=== PATIENT | female | born 1950 | race Caucasian/White ===

== ENCOUNTER → 2016-04-21 | Outpatient (CLI) | payer BC ==
[2016-04-21 16:47] VITALS: BMI 39.9
[2016-04-21 16:51] VITALS: BP 150/86; PULSE 65; RESP 16; TEMP 98.8
[2016-04-21 17:19] LABS: CH 28.1; CHCM 31.6; HCT 46.6 % (34.0-46.0); HDW 2.21; HGB 14.7 gm/dL (11.4-16.0); MCH 28.1 pg (25.0-35.0); MCHC 31.5 g/dL (31.0-37.0); MCV 89.2 fL (80.0-100.0); Mean Platelet Volume 6.8; RBC 5.22 m/uL (3.80-5.40); RDW 13.5 % (11.5-15.5); WBC 6.9 k/uL (3.8-10.6)
[2016-04-21 17:30] LABS: ALT 32 U/L (9-52); AST 25 U/L (14-36); Alkaline Phosphatase 85 U/L (38-126); Anion Gap 11 mmol/L; Blood Urea Nitrogen 16 mg/dL (7-17); Calcium 9.9 mg/dL (8.4-10.2); Carbon Dioxide 27 mmol/L (22-30); Chloride 102 mmol/L (98-107); Cholesterol 213 mg/dL (<200); Glucose 98 mg/dL (74-99); HDL Cholesterol 61 mg/dL (40-60); Iron 44 ug/dL (37-170); Magnesium 2.1 mg/dL (1.6-2.3); Non-African American GFR(MDRD) >60 (>60 ml/min/1.73 sqM); Phosphorous 3.5 mg/dL (2.5-4.5); Potassium 4.6 mmol/L (3.5-5.1); Sodium 140 mmol/L (137-145); Total Bilirubin 0.4 mg/dL (0.2-1.3); Total Protein 6.8 g/dL (6.3-8.2); Triglycerides 119 mg/dL (<150)
[2016-04-21 17:39] LABS: % Iron Saturation 15.4 % (20-50); Prealbumin 22 mg/dL (18-36); Total Iron Binding Capacity 286 ug/dL (265-497)
[2016-04-21 17:46] LABS: INR 1.1 (<1.1); Partial Thromboplastin Time 25.2 sec (22.0-30.0); Prothrombin Time 10.6 sec (9.0-12.0)
[2016-04-21 18:37] LABS: Vitamin B12 782 pg/mL (239-931)
[2016-04-21 18:41] LABS: Hemoglobin A1C 5.6 % (4.2-6.1)
[2016-04-23 18:21] LABS: Selenium 149 mcg/L (63-160)
--- NOTE | 2016-05-27 04:15 | P.PN ---
Progress Note - Text DATE OF SERVICE: 04/21/2016 CHIEF COMPLAINT: Followup sleeve gastrectomy. HISTORY OF PRESENT ILLNESS: Jaqueline Hoffmann is a 65-year-old female who is status post sleeve gastrectomy April 14, 2015. She is one year out. At her height of 5 feet 5 inches, her ideal body weight is 149 pounds. Highest weight is 321 pounds. Today she comes in weighing 239 pounds. She has lost 82 pounds in one year. Percent excess weight loss is 48%. Body mass index is reduced from 53.5 down to 39.9. Total BMI point index is 13.6. She is still 90 pounds overweight. Her goal is to at least achieve another 40 to 50 pound weight loss. She feels great. She is off all medications related to blood pressure and diabetes and she is only on thyroid medications. PAST MEDICAL HISTORY: 1. Diabetes, type 2, well controlled. 2. Obstructive sleep apnea. 3. Hypothyroidism. 4. Gout. 5. Osteoarthritis of bilateral knees with subsequent replacement. 6. Morbid obesity with body mass index of 53.5, initial. PAST SURGICAL HISTORY: 1. Appendectomy. 2. Hysterectomy. 3. Joint replacement. 4. Bilateral knee replacement. 5. Upper endoscopy. 6. Colonoscopy with polypectomy. 7. Sleeve gastrectomy. MEDICATIONS: 1. Multivitamin. 2. Cytomel. 3. Calcium. 4. Vitamin C. 5. Xanax. ALLERGIES: DENIES. SOCIAL HISTORY: No active alcohol, tobacco or illicit drug use. FAMILY HISTORY: Pertinent for morbid obesity and diabetes, type 2, with her mother dying from complications from diabetes. Denies any stomach or esophageal cancer. REVIEW OF SYSTEMS: CONSTITUTIONAL: Total weight loss of 82 pounds. Body mass index reduced from 53.5 down to 39.9. 40% excess weight loss. ENDOCRINE: Resolved diabetes type 2, [id number]. Currently taking medications for her thyroid. CARDIOVASCULAR: She is not on any hypertensive medications. No medications of dyslipidemia. MUSCULOSKELETAL: Moderate reduction of lower back, including bilateral joint knee pain. RESPIRATORY: Resolved obstructive sleep apnea. GASTROINTESTINAL: No reports of blood in stools. Denies any gastroesophageal reflux disease. HEENT: Denies any troubles with hearing. CARDIOVASCULAR: No reports of recent chest pain or heart attack. NEURO: No reports of stroke or seizure disorder. PSYCH: No reports of depression or suicidal ideation. HEMATOLOGIC: Denies any easy bruising or bleeding. PHYSICAL EXAM: VITAL SIGNS: 98.8, 65, 16, 150/86; 5 foot 5, 239 pounds. Body mass index 39.9. ABDOMEN: Soft, nontender. Mild hyperemia with panniculitis. No large palpable incisional hernias. GENERAL: Well-developed female no acute distress. MUSCULOSKELETAL: No clubbing, cyanosis, or edema. HEENT: No sclerae icterus. Extraocular movements grossly intact. Moist buccal mucosa. NECK: Supple without lymphadenopathy. CHEST: Non-labored respirations with equal bilateral excursions. CARDIOVASCULAR: Regular rate and rhythm. NEURO: No focal or lateralizing signs. PSYCH: Appropriate affect. Alert and oriented to person, place and time. LABS: Basic metabolic panel was reviewed. Hematocrit was elevated at 46.6. Cholesterol was elevated at 213. LDL elevated at 120. HDL elevated at 61. Thyroid-stimulating hormone elevated at 7. Zinc low at 53. ASSESSMENT: 1. Morbid obesity due to excess calories. 2. Body mass index reduced from 53.5 down to 39.9. 3. Chronic obstructive pulmonary disease with obstructive sleep apnea. 4. Hypothyroidism. 5. 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 6. Osteoarthritis of bilateral knees due to morbid obesity. 7. Diabetes, type 2, well controlled. 8. Status post sleeve gastrectomy. 9. Dietary surveillance and counseling. 10. Secondary hyperparathyroidism. 11. Panniculitis of the abdomen. 12. Hypercholesterolemia. 13. Zinc deficiency. PLAN: 1. In view of her labs with thyroid stimulating hormone elevated, recommend increase her thyroid supplement. 2. Recommend zinc supplement at least 50 mg daily. 3. Although she has completed her one year sleeve gastrectomy, recommend strict medical supervised weight loss to help her achieve extra 50 pounds weight loss. 4. Recommend at least follow up in 2 to 3 months as well. 5. Nystatin powder is written on her behalf for panniculitis.
== END | disposition home or self-care (01) ==
LOC: BARWHC3 15:11
PROVIDERS: ATTEND Surgery Plastic and Reconstructive Surgery
DX: Z48.815 Encounter for surgical aftercare following surgery on the digestive system (principal); E66.01 Morbid (severe) obesity due to excess calories; Z68.39 Body mass index [BMI] 39.0-39.9, adult; J44.9 Chronic obstructive pulmonary disease, unspecified; M17.0 Bilateral primary osteoarthritis of knee; Z96.653 Presence of artificial knee joint, bilateral; Z98.84 Bariatric surgery status; Z71.3 Dietary counseling and surveillance; M79.3 Panniculitis, unspecified; E78.00 Pure hypercholesterolemia, unspecified; E60 Dietary zinc deficiency; E21.1 Secondary hyperparathyroidism, not elsewhere classified; E89.1 Postprocedural hypoinsulinemia; D50.8 Other iron deficiency anemias; E44.0 Moderate protein-calorie malnutrition; E55.9 Vitamin D deficiency, unspecified; K74.1 Hepatic sclerosis; T56.894A Toxic effect of other metals, undetermined, initial encounter; K50.90 Crohn's disease, unspecified, without complications; Z79.899 Other long term (current) drug therapy
CPT/HCPCS: 80053; 80061; 82306; 82525; 82607; 82728; 82746; 83036; 83540; 83550; 83735; 83970; 84100; 84134; 84255; 84443; 84590; 84630; 85027; 85610; 85730; 99211

== ENCOUNTER → 2017-04-20 | Outpatient (CLI) | payer BC ==
[2017-04-20 16:04] VITALS: BP 140/78; PULSE 85; RESP 15; TEMP 97.6; BMI 39.7
[2017-04-20 17:28] LABS: Partial Thromboplastin Time 24.1 sec (22.0-30.0); Prothrombin Time 10.1 sec (9.0-12.0)
[2017-04-20 17:31] LABS: HCT 45.3 % (34.0-46.0); HGB 14.7 gm/dL (11.4-16.0); MCH 28.7 pg (25.0-35.0); MCHC 32.4 g/dL (31.0-37.0); MCV 88.6 fL (80.0-100.0); Mean Platelet Volume 6.8; Platelet Count 286 k/uL (150-450); RBC 5.11 m/uL (3.80-5.40); RDW 13.2 % (11.5-15.5); WBC 6.8 k/uL (3.8-10.6)
[2017-04-20 17:33] LABS: Albumin 4.3 g/dL (3.5-5.0); Calcium 10.1 mg/dL (8.4-10.2); Magnesium 2.1 mg/dL (1.6-2.3); Phosphorus 3.5 mg/dL (2.5-4.5); Potassium 4.7 mmol/L (3.5-5.1); Total Bilirubin 0.5 mg/dL (0.2-1.3); Total Protein 6.6 g/dL (6.3-8.2)
[2017-04-21 01:42] LABS: Iron Saturation 14.95 (12.00-45.00)
[2017-04-21 01:54] LABS: Vitamin D 25 Hydroxy 51.4 ng/mL (30.0-100.0)
[2017-04-21 01:58] LABS: Hemoglobin A1C 5.4 % (4.0-6.0)
[2017-04-21 02:15] LABS: Folate, Serum >24.0 ng/mL
[2017-04-21 02:29] LABS: Parathyroid Hormone Intact 66.7 pg/mL (14.0-72.0)
[2017-04-21 16:21] LABS: Zinc, Serum 69 ug/dL (60-130)
[2017-04-22 00:54] LABS: Vitamin B1 46 ug/L (38-122)
[2017-04-22 08:42] LABS: Vitamin A 54 ug/dL (38-106)
[2017-04-23 23:22] LABS: Selenium 135 mcg/L (63-160)
--- NOTE | 2017-06-03 08:31 | P.PN ---
Subjective Progress Note Date: 04/20/17 DATE OF SERVICE: 04/20/2017 CHIEF COMPLAINT: Followup sleeve gastrectomy HISTORY OF PRESENT ILLNESS: Jaqueline Hoffmann is a 66-year-old female who is status post sleeve gastrectomy April 14, 2015. She is 2 years out. At her height of 5 feet 5 inches, her ideal body weight is 149 pounds. Highest weight is 321 pounds. Today she comes in weighing 239 pounds. Her weight has been unchanged in 1 year. She has maintained 82 pounds weight loss. Percent excess weight loss is 48%. Body mass index is reduced from 53.5 down to 39.8. She denies any gastroesophageal reflux disease. She reports improvement of her joint pain and upper lower back. No reports of abdominal pain. She is doing well. She is looking to lose at least another 20 pounds. She reports chronic panniculitis for more than 2 years. She has been using nystatin powder for over 3 years including medical and topical therapies without success. PAST MEDICAL HISTORY: 1. Diabetes, type 2, well controlled. 2. Obstructive sleep apnea. 3. Hypothyroidism. 4. Gout. 5. Osteoarthritis of bilateral knees with subsequent replacement. 6. Morbid obesity with body mass index of 53.5, initial. PAST SURGICAL HISTORY: 1. Appendectomy. 2. Hysterectomy. 3. Joint replacement. 4. Bilateral knee replacement. 5. Upper endoscopy. 6. Colonoscopy with polypectomy. 7. Sleeve gastrectomy. MEDICATIONS: 1. Multivitamin. 2. Cytomel. 3. Calcium. 4. Vitamin C. 5. Xanax. 6. Zinc 7. Nystatin powder ALLERGIES: DENIES. SOCIAL HISTORY: No active alcohol, tobacco or illicit drug use. FAMILY HISTORY: Pertinent for morbid obesity and diabetes, type 2, with her mother dying from complications from diabetes. Denies any stomach or esophageal cancer. REVIEW OF SYSTEMS: CONSTITUTIONAL: At her height of 5 feet 5 inches, her ideal body weight is 149 pounds. Highest weight is 321 pounds. Today she comes in weighing 239 pounds. Her weight has been unchanged in 1 year. She has maintained 82 pounds weight loss. Percent excess weight loss is 48%. Body mass index is reduced from 53.5 down to 39.8. ENDOCRINE: Resolved diabetes type 2, [id number]. Currently taking medications for her thyroid. CARDIOVASCULAR: She is not on any hypertensive medications. No medications of dyslipidemia. MUSCULOSKELETAL: Moderate reduction of lower back, including bilateral joint knee pain. RESPIRATORY: Resolved obstructive sleep apnea. No pneumonia GASTROINTESTINAL: No reports of blood in stools. Denies any gastroesophageal reflux disease. HEENT: Denies any troubles with hearing. CARDIOVASCULAR: No reports of recent chest pain or heart attack. NEURO: No reports of stroke or seizure disorder. PSYCH: No reports of depression or suicidal ideation. Has anxiety. HEMATOLOGIC: Denies any easy bruising or bleeding. SKIN: No skin cancer. Has chronic panniculitis. PHYSICAL EXAM: VITAL SIGNS: 5 foot 5, 239 pounds. Body mass index 39.8. Vital Signs Temp 97.6 F 04/20/17 15:48 Pulse 85 04/20/17 15:48 Resp 15 04/20/17 15:48 BP 140/78 04/20/17 15:48 Pulse Ox ABDOMEN: Soft, nontender. No large palpable incisional hernias. Pannus overlaps pubis 4 inches. Weight of pannus over 10 pounds. GENERAL: Well-developed female no acute distress. MUSCULOSKELETAL: No clubbing, cyanosis, or edema. HEENT: No sclerae icterus. Extraocular movements grossly intact. Moist buccal mucosa. NECK: Supple without lymphadenopathy. CHEST: Non-labored respirations with equal bilateral excursions. CARDIOVASCULAR: Regular rate and rhythm. NEURO: No focal or lateralizing signs. Cranial nerves II-12 grossly intact. PSYCH: Appropriate affect. Alert and oriented to person, place and time. SKIN: Good skin turgor. Well-perfused. ASSESSMENT: 1. Morbid obesity due to excess calories. 2. Body mass index reduced from 53.5 down to 39.8. 3. Chronic obstructive pulmonary disease with obstructive sleep apnea, resolved. 4. Hypothyroidism. 5. Osteoarthritis of lower back due to morbid obesity, improved 6. Osteoarthritis of bilateral knees due to morbid obesity, improved 7. Diabetes, type 2, resolved 8. Status post sleeve gastrectomy. 9. Panniculitis of the abdomen. PLAN: 1. Recommend bariatric panel 2. Recommend adjustment of her diet including meeting in the bariatric dietitian 3. Recommend ketogenic 2 week high-protein low-carb diet to obtain additional weight loss 4. She is more than 2 years out from her bariatric procedure and is evaluating for panniculectomy. Continue nystatin powder. 5. With her functional concern including chronic skin irritation despite medical treatment, may benefit from panniculectomy for her panniculitis. 6. Recommend correction of all nutritional deficiencies 7. DVT prophylaxis 8. Antibiotic prophylaxis 9. Follow up June 2017 regarding weight loss management. Laboratory Last Values WBC 6.8 k/uL (3.8-10.6) 04/20/17 16:46 RBC 5.11 m/uL (3.80-5.40) 04/20/17 16:46 Hgb 14.7 gm/dL (11.4-16.0) 04/20/17 16:46 Hct 45.3 % (34.0-46.0) 04/20/17 16:46 MCV 88.6 fL (80.0-100.0) 04/20/17 16:46 MCH 28.7 pg (25.0-35.0) 04/20/17 16:46 MCHC 32.4 g/dL (31.0-37.0) 04/20/17 16:46 RDW 13.2 % (11.5-15.5) 04/20/17 16:46 Plt Count 286 k/uL (150-450) 04/20/17 16:46 PT 10.1 sec (9.0-12.0) 04/20/17 16:46 INR 1.0 (<1.2) 04/20/17 16:46 APTT 24.1 sec (22.0-30.0) 04/20/17 16:46 Sodium 140 mmol/L (137-145) 04/20/17 16:46 Potassium 4.7 mmol/L (3.5-5.1) 04/20/17 16:46 Chloride 101 mmol/L (98-107) 04/20/17 16:46 Carbon Dioxide 30 mmol/L (22-30) 04/20/17 16:46 Anion Gap 9 mmol/L 04/20/17 16:46 BUN 19 mg/dL (7-17) H 04/20/17 16:46 Creatinine 0.83 mg/dL (0.52-1.04) 04/20/17 16:46 Est GFR (CKD-EPI)AfAm 86 (>60 ml/min/1.73 sqM) 04/20/17 16:46 Est GFR (CKD-EPI)NonAf 75 (>60 ml/min/1.73 sqM) 04/20/17 16:46 Glucose 102 mg/dL (74-99) H 04/20/17 16:[address] Glu mg/dL 108 04/20/17 16:46 Hemoglobin A1c 5.4 % (4.0-6.0) 04/20/17 16:46 Calcium 10.1 mg/dL (8.4-10.2) 04/20/17 16:46 Phosphorus 3.5 mg/dL (2.5-4.5) 04/20/17 16:46 Magnesium 2.1 mg/dL (1.6-2.3) 04/20/17 16:46 Iron 45 ug/dL (50-170) L 04/20/17 16:46 TIBC 301 ug/dL (228-460) 04/20/17 16:46 Iron Saturation 14.95 (12.00-45.00) 04/20/17 16:46 Ferritin 69.8 ng/mL (10.0-291.0) 04/20/17 16:46 Total Bilirubin 0.5 mg/dL (0.2-1.3) 04/20/17 16:46 AST 23 U/L (14-36) 04/20/17 16:46 ALT 20 U/L (9-52) 04/20/17 16:46 Alkaline Phosphatase 97 U/L (38-126) 04/20/17 16:46 Total Protein 6.6 g/dL (6.3-8.2) 04/20/17 16:46 Albumin 4.3 g/dL (3.5-5.0) 04/20/17 16:46 Prealbumin 23.0 mg/dL (18.0-42.0) 04/20/17 16:46 Triglycerides 91 mg/dL (<150) 04/20/17 16:46 Cholesterol 194 mg/dL (<200) 04/20/17 16:46 LDL Cholesterol, Calc 115 mg/dL (0-99) H 04/20/17 16:46 HDL Cholesterol 61 mg/dL (40-60) H 04/20/17 16:46 Vitamin A 54 ug/dL (38-106) 04/20/17 16:46 Vitamin B1 46 ug/L (38-122) 04/20/17 16:46 Vitamin B12 940.0 pg/mL (200.0-944.0) 04/20/17 16:46 Vitamin D 25-Hydroxy 51.4 ng/mL (30.0-100.0) 04/20/17 16:46 Folate >24.0 ng/mL 04/20/17 16:46 TSH 4.550 mIU/L (0.465-4.680) 04/20/17 16:46 PTH Intact 66.7 pg/mL (14.0-72.0) 04/20/17 16:46 Copper 1321 ug/L (810-1990) 04/20/17 16:46 Selenium 135 mcg/L (63-160) 04/20/17 16:46 Zinc 69 ug/dL (60-130) 04/20/17 16:46 Iron is low LDL elevated HDL elevated Recommend iron supplement or multivitamin with iron Objective - Labs CBC & Chem 7: 04/20/17 16:46 04/20/17 16:46
== END | disposition home or self-care (01) ==
LOC: BARWHC3 14:29
PROVIDERS: ATTEND Surgery Plastic and Reconstructive Surgery
DX: Z48.815 Encounter for surgical aftercare following surgery on the digestive system (principal); E66.01 Morbid (severe) obesity due to excess calories; E03.9 Hypothyroidism, unspecified; M47.9 Spondylosis, unspecified; M17.0 Bilateral primary osteoarthritis of knee; M79.3 Panniculitis, unspecified; M10.9 Gout, unspecified; E22.1 Hyperprolactinemia; E89.1 Postprocedural hypoinsulinemia; D50.9 Iron deficiency anemia, unspecified; E44.0 Moderate protein-calorie malnutrition; E55.9 Vitamin D deficiency, unspecified; K74.1 Hepatic sclerosis; N19 Unspecified kidney failure; K50.90 Crohn's disease, unspecified, without complications; Z79.899 Other long term (current) drug therapy; Z96.653 Presence of artificial knee joint, bilateral; Z68.39 Body mass index [BMI] 39.0-39.9, adult; Z98.890 Other specified postprocedural states; Z98.84 Bariatric surgery status
CPT/HCPCS: 36415; 80053; 80061; 82306; 82525; 82607; 82728; 82746; 83036; 83540; 83550; 83735; 83970; 84100; 84134; 84255; 84425; 84443; 84590; 84630; 85027; 85610; 85730; 99211

== ENCOUNTER → 2017-10-12 | Outpatient (CLI) | payer MEDICARE | END | disposition home or self-care (01) | DX: M79.3 Panniculitis, unspecified (principal); M54.9 Dorsalgia, unspecified; M25.559 Pain in unspecified hip; R68.89 Other general symptoms and signs ==

== ENCOUNTER → 2023-04-13 | Day surgery (SDC) | payer MEDICARE, OTHER ==
[~2023-04-13] MED LIST: LIDOCAINE 1% (10MG/ML) FOR IV START INTRADERMA PRN; ONDANSETRON 4 MG/2 ML VIAL IVP PRN; PROPOFOL 10 MG/ML 20 ML VIAL IV ONE
--- NOTE | 2023-04-13 08:02 | P.GSHP ---
History of Present Illness H&P Date: 04/13/23 CHIEF COMPLAINT: Colon screen HISTORY OF PRESENT ILLNESS: The patient is a 72-year-old female who presents for colon screen. Lower endoscopy was offered for further evaluation and management. PAST MEDICAL HISTORY: Please see list. PAST SURGICAL HISTORY: Please see list. MEDICATIONS: Please see list. ALLERGIES: Please see list. SOCIAL HISTORY: No illicit drug use FAMILY HISTORY: No reports of Crohn disease or ulcerative colitis. REVIEW OF ORGAN SYSTEMS: CONSTITUTIONAL: No reports of fevers or chills. PHYSICAL EXAM: VITAL SIGNS: Stable GENERAL: Well-developed pleasant in no acute distress. HEENT: No scleral icterus. Extraocular movements grossly intact. Moist buccal mucosa. NECK: Supple without lymphadenopathy. CHEST: Unlabored respirations. Equal bilateral excursions. CARDIOVASCULAR: Regular rate and rhythm. Distal 2+ pulses. ABDOMEN: Soft, nontender, nondistended. MUSCULOSKELETAL: No clubbing, cyanosis, or edema. ASSESSMENT: 1. Colon screen. PLAN: 1. 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 after baricatric surgery, no cpap small b cell lymphoma uterine cancer History of Any Multi-Drug Resistant Organisms: None Reported Past Surgical History: Appendectomy, Bariatric Surgery, Cholecystectomy, Hysterectomy, Joint Replacement Additional Past Surgical History / Comment(s): Bilateral Knee replacement; gastric Sleeve (04/11/15) hip relaplced and pins plates in ankle Past Anesthesia/Blood Transfusion Reactions: Postoperative Nausea & Vomiting (PONV) Smoking Status: Never smoker - Past Family History Mother Family Medical History: No Reported History Medications and Allergies Home Medications Medication Instructions Recorded Confirmed Type Multivitamins, Thera [Multivitamin 1 tab PO DAILY 09/25/14 04/08/23 History (formulary)] Calcium Carbonate [Calcium] 600 mg PO BID 04/07/15 04/08/23 History ALPRAZolam [Xanax] 0.5 mg PO Q12HR PRN 10/23/15 04/08/23 History Ascorbic Acid [Vitamin C] 1,000 mg PO DAILY 10/23/15 04/08/23 History Levothyroxine Sodium [Synthroid] 112 mcg PO DAILY 04/20/17 04/08/23 History Cyclobenzaprine [Flexeril] 5 mg PO DAILY PRN 10/13/17 04/08/23 History Allergies Allergy/AdvReac Type Severity Reaction Status Date / Time No Known Allergies Allergy Verified 04/08/23 11:49
[2023-04-13] MEDS: LACTATED RINGERS 1,000 ML IV SCH (09:33)
[2023-04-13 09:54] VITALS: RESP 20; TEMP 97.6
--- NOTE | 2023-04-13 10:48 | P.PCN ---
Date of Procedure: 04/13/23 Description of Procedure: PREOPERATIVE DIAGNOSIS: Colonoscopy screening. POSTOPERATIVE DIAGNOSIS: Colonoscopy screening. Pandiverticulosis OPERATION: Colonoscopy to the cecum, ileocecal valve and appendiceal orifice. SURGEON: Carola Chow MD. ANESTHESIA: MAC. INDICATIONS: The patient is a 72-year-old female who presents for colonoscopy screening. Last colonoscopy 10 years ago. Benefits and risks were described and informed consent was obtained. DESCRIPTION OF PROCEDURE: The patient had undergone Sutab prep. The patient had been brought into the operating room and laid in the left lateral decubitus position. After adequate intravenous sedation, the rectum was examined with 2% lidocaine jelly. External hemorrhoids were encountered. The rectal tone was within normal limits. No lesions were palpated in the rectal vault. An Olympus colonoscope was advanced to highly redundant colon despite abdominal pressure went to the distal ascending colon/hepatic flexure. The prep was fair. Moderate to severe pandiverticulosis was encountered. No colonic polyps were found however limited to the distal ascending colon/hepatic flexure. No evidence of focal colitis was found. Retroflexion of the scope demonstrated grade 2 internal hemorrhoids without active bleeding or inflammation. The colon was desufflated. The patient had tolerated the procedure well. Withdrawal time was over 6 minutes. FINDINGS: Aronchick preparation quality scale 2+ (1-5) Internal hemorrhoids, grade 2 External prolapsed hemorrhoids, grade 2 No arteriovenous malformations. No adenomatous polyps to distal ascending colon/hepatic flexure No focal colitis. Mildly redundant colon with questionable cecal volvulus RECOMMENDATIONS: Completion colonoscopy for cecum and evaluation for cecal volvulus via barium enema Plan - Discharge Summary Discharge Rx Participant: No New Discharge Prescriptions: No Action Multivitamins, Thera [Multivitamin (formulary)] 1 tab PO DAILY Calcium Carbonate [Calcium] 600 mg PO BID ALPRAZolam [Xanax] 0.5 mg PO Q12HR PRN PRN Reason: Agitation Ascorbic Acid [Vitamin C] 1,000 mg PO DAILY Levothyroxine Sodium [Synthroid] 112 mcg PO DAILY Cyclobenzaprine [Flexeril] 5 mg PO DAILY PRN PRN Reason: back spasm Discharge Medication List Multivitamins, Thera [Multivitamin (formulary)] 1 tab PO DAILY 09/25/14 [History] Calcium Carbonate [Calcium] 600 mg PO BID 04/07/15 [History] ALPRAZolam [Xanax] 0.5 mg PO Q12HR PRN 10/23/15 [History] Ascorbic Acid [Vitamin C] 1,000 mg PO DAILY 10/23/15 [History] Levothyroxine Sodium [Synthroid] 112 mcg PO DAILY 04/20/17 [History] Cyclobenzaprine [Flexeril] 5 mg PO DAILY PRN 10/13/17 [History]
[2023-04-13 11:36] VITALS: BP 139/66; PULSE 68
--- NOTE | 2023-04-15 19:12 | XR ---
EXAMINATION TYPE: XR abdomen 1V DATE OF EXAM: 04/13/2023 Comparison: None Clinical History: 72-year-old female BARIUM ENEMA PRELIM Findings: Extensive retained colonic air. Surgical clips right lower quadrant and additional clips relating to prior cholecystectomy. Gassy small bowel is also present. Supine imaging limited for assessment of fr ee air. Surgical material just below the GE junction. Partially visualized right total hip arthroplas ty. Impression: Excessive retained colonic air. We will need to delay the barium enema exam. Patient status post inco mplete colonoscopy.
== END ==
LOC: ORWHC2ENDO 08:42
PROVIDERS: ATTEND Surgery Plastic and Reconstructive Surgery
DX: Z12.11 Encounter for screening for malignant neoplasm of colon (principal); K57.30 Diverticulosis of large intestine without perforation or abscess without bleeding; K64.1 Second degree hemorrhoids; E11.9 Type 2 diabetes mellitus without complications; G47.33 Obstructive sleep apnea (adult) (pediatric); E07.9 Disorder of thyroid, unspecified; Z90.89 Acquired absence of other organs; Z90.710 Acquired absence of both cervix and uterus; Z96.653 Presence of artificial knee joint, bilateral; Z79.890 Hormone replacement therapy
CPT/HCPCS: 74018; J2704; G0121

== ENCOUNTER → 2023-04-13 | Outpatient (CLI) | payer MEDICARE, OTHER ==
[2023-04-13 13:42] LABS: Partial Thromboplastin Time 22.4 sec (22.0-30.0); Prothrombin Time 10.7 sec (10.0-12.5)
[2023-04-13 17:37] LABS: HCT 45.1 % (37.2-46.3); HGB 14.4 g/dL (12.0-15.0); MCH 28.6 pg (27.0-32.0); MCHC 31.9 g/dL (32.0-37.0); MCV 89.5 FL (80.0-97.0); Mean Platelet Volume 9.7 FL (9.5-12.2); NRBC Per 100 WBC 0 X 10*3/uL (0.00-0.01); Platelet Count 262 X 10*3/uL (140-440); RBC 5.04 X 10*6/uL (4.10-5.20); RDW 14.1 % (11.5-14.5); WBC 10.37 X 10*3/uL (4.50-10.00)
[2023-04-13 18:26] LABS: % Iron Saturation 17.28 (12.00-45.00); ALT 15 U/L (8-44); AST 20 U/L (13-35); Albumin 4.3 g/dL (3.8-4.9); Albumin/Globulin Ratio 2.26 Ratio (1.60-3.17); Alkaline Phosphatase 93 U/L (41-126); BUN/Creat Ratio 17.62 Ratio (12.00-20.00); Blood Urea Nitrogen 14.1 mg/dL (9.0-27.0); Carbon Dioxide 26.7 mmol/L (21.6-31.8); Chloride 104 mmol/L (96-109); Chol/HDL Ratio 3.97 Ratio; Ferritin 91.7 ng/mL (10.0-291.0); Globulin 1.9 g/dL (1.6-3.3); Glucose 112 mg/dL (70-110); Iron 52 UG/DL (50-170); LDL Cholesterol,Calculated 143.7 mg/dL (0.0-131.0); Phosphorus 3.5 mg/dL (2.4-5.1); Potassium 4.6 mmol/L (3.5-5.5); Sodium 142 mmol/L (135-145); Total Bilirubin 0.6 mg/dL (0.3-1.2); Total Iron Binding Capacity 301 UG/DL (228-460); Total Protein 6.2 g/dL (6.2-8.2); VLDL Calculation 18.58 mg/dL (5.00-40.00)
[2023-04-13 22:45] LABS: Prealbumin 20.8 mg/dL (18.0-42.0)
[2023-04-14 11:36] LABS: Zinc, Serum 81 ug/dL (60-130)
[2023-04-15 06:03] LABS: Vitamin A 58 ug/dL (38-106)
[2023-04-15 06:23] LABS: Vit B1(Thiamine) 55 ug/L (38-122)
== END | disposition home or self-care (01) ==
LOC: LABWHC1 12:53
PROVIDERS: ATTEND Surgery Plastic and Reconstructive Surgery
DX: E66.01 Morbid (severe) obesity due to excess calories (principal); D50.8 Other iron deficiency anemias; K90.9 Intestinal malabsorption, unspecified; E55.9 Vitamin D deficiency, unspecified; K74.1 Hepatic sclerosis; T56.894A Toxic effect of other metals, undetermined, initial encounter; N19 Unspecified kidney failure
CPT/HCPCS: 36415; 80053; 80061; 82306; 82525; 82607; 82728; 82746; 83036; 83540; 83550; 83735; 83970; 84100; 84134; 84255; 84425; 84443; 84590; 84630; 85027; 85610; 85730

== ENCOUNTER → 2023-04-14 | Outpatient (CLI) | payer MEDICARE, OTHER ==
--- NOTE | 2023-04-14 16:34 | FL ---
EXAMINATION TYPE: FL single contrast barium enema DATE OF EXAM: 04/14/2023 COMPARISON: Radiograph 04/13/2023 HISTORY: 72-year-old female Z12.11, screening, incomplete colonoscopy, scope to upper ascending colon /hepatic flexure. TECHNIQUE: A single contrast barium enema study is performed. A total of 1 minute 55 seconds of flu oroscopic time was utilized during procedure and 65 images obtained. Total dose area product (DAP) i n uGy*m?, mGy*cm? (or similar): 20. FINDINGS: Parachute Packer view of the abdomen shows overall non-obstructive bowel gas pattern but with residua l prominent retained air throughout the transverse colon. Cholecystectomy clips. Additional surgical clips right lower quadrant. Additional bowel surgery with staple line below the GE junction. There is prominent redundancy of the sigmoid colon. Additional redundancy of the lower ascending colo n. The regions of redundancy results in bowel overlap and limitation of assessment. There is sigmoid diverticulosis SC for the exam limitations, there is evidence of any mass or polyp, obstructing or constricting lesi on throughout the colon. Neither the appendix or reflux into the terminal ileum is seen. IMPRESSION: 1. Single contrast technique utilized due to persistent retained air especially in the transverse col on. 2. Prominent redundancy of both the sigmoid colon and lower ascending colon causing limitation in vis ualization. 3. Allowing for this limitation, no suspicious annular constricting lesion/mass is identified. 4. Sigmoid diverticulosis.
== END | disposition home or self-care (01) ==
LOC: RADFLMAIN 08:57
PROVIDERS: ATTEND Surgery Plastic and Reconstructive Surgery
DX: Z12.11 Encounter for screening for malignant neoplasm of colon (principal); K57.30 Diverticulosis of large intestine without perforation or abscess without bleeding; K63.89 Other specified diseases of intestine; K56.2 Volvulus
CPT/HCPCS: 74270